=== PATIENT | male | born 1980 | race Caucasian/White ===

== ENCOUNTER 2019-12-30 07:07 | Inpatient (IN) | payer OTHER ==
[~2019-12-30] VITALS: Ht 175.3 cm; Wt 93.7 kg
[2019-12-30] MEDS ORDERED: SODIUM CHLORIDE 0.9% 1,000 ML IV ONE (07:38)
[2019-12-30 07:40] LABS: Urine Bacteria NONE SEEN /hpf (None Seen); Urine Blood Negative /uL (Negative); Urine Mucus FEW (None Seen); Urine Specific Gravity 1.028 (1.001-1.035); Urine WBC <1 /hpf (0 - 3)
[2019-12-30] MEDS ORDERED: METOCLOPRAMIDE HCL 5MG/ml INJ 2ml VIAL IV ONE (07:45)
[2019-12-30] MEDS ORDERED: KETOROLAC TROMETH 15 mg/ml 1ML VL IV ONE (07:45)
[2019-12-30 07:49] LABS: Basophils # (auto) 0 10 ^3/uL (0-0.2); Eosinophils # (auto) 0.1 10 ^3/uL (0-0.8); Eosinophils % (auto) 0.7 % (0.0-7.0); Hemoglobin 17.8 g/dL (13.5-17.5); Lymphocytes # (auto) 2.2 10 ^3/uL (0.4-5.4); Monocytes # (auto) 0.5 10 ^3/uL (0-1.3); Neutrophils # (auto) 6.8 10 ^3/uL (1.6-8.6); White Blood Cell 9.6 10^3/uL (4.4-10.8)
[2019-12-30 07:51] LABS: Basophils % (auto) 0.4 % (0.0-2.0); Hematocrit 51.9 % (41.0-53.0); Lymphocytes % (auto) 22.5 % (10.0-50.0); Mean Corpuscular Hemoglobin 29.2 pg (28.0-32.0); Mean Corpuscular Hgb Conc. 34.3 g/dL (32.0-36.0); Mean Corpuscular Volume 85.2 fL (80.0-100.0); Monocytes % (auto) 5.2 % (0.0-12.0); Neutrophils % (auto) 71.2 % (37.0-80.0); Nucleated Red Blood Cells % 0.4 %; Platelet Count (auto) 233 10^3/uL (140-450); Red Blood Cells 6.09 10^6/uL (4.5-5.90); Red Cell Distribution Width 13.7 % (11.8-14.3)
[2019-12-30 08:15] LABS: Calcium 9.7 mg/dL (8.5-10.1); Potassium 4.1 mmol/L (3.5-5.1)
[2019-12-30 08:19] LABS: Magnesium 2.3 mg/dL (1.6-2.6); Total Protein 8.7 g/dL (6.4-8.2)
[2019-12-30 08:59] LABS: BUN/Creatinine Ratio 14.6
[2019-12-30] MEDS: D5W/SOD CHL 0.45% 1,000 ML IV SCH ×2 (12:27→20:01)
[2019-12-30] MEDS: MORPHINE SULF INJ 2 MG/ML SYRINGE 1ML IV PRN (12:28)
[2019-12-30] MEDS: ONDANSETRON HCL 4 MG/2 ML VIAL IV PRN (12:28)
--- NOTE | 2019-12-30 13:35 | NUR ---
MS admit from ER MARIE QUEEN admitted to tele/MS after SBAR received from MEDICAL APPOINTMENT CLERKIONA Wei. Patient oriented to Erum Lozada RN primary RN, unit, room, bed, and unit policies regarding patient care and visiting hours. Patient weighed by bedscale and encouraged to call if they need something. All questions and concerns addressed, patient verbalized understanding. Note: Patient is alert and oriented x4. Ambulates with steady gait. No s/s of distress/SOB or pain reported at this time. Respirations are even and unlabored. Bed is low, locked with 2x side rails up. Call light is within reach. Instructed on POC and to call for assist PRN, will continue to monitor for changes Q1hr and PRN.
[2019-12-30] MEDS ORDERED: GOLYTELY 4L KIT PO ONE (14:15)
--- NOTE | 2019-12-30 14:22 | NUR ---
AMA to Smoke Patient stated he would like to go smoke. This nurse educated patient on risks of smoking and advised him that he cannot be monitored if he is off unit. Patient verbalized understanding and still wants to smoke. AMA signed and filed in chart.
[2019-12-30 15:32] LABS: INR 1.17 (0.9-1.15)
[2019-12-30 17:00] VITALS: BP 120/87
--- NOTE | 2019-12-30 19:25 | NUR ---
Opening Shift Note ASSUMED CARE OF PATIENT AFTER RECEIVING REPORT FROM DAY RNCARMINA. PATIENT AWAKE AND ALERT, RESTING IN BED COMFORTABLY, FAMILY AT BEDSIDE. NO S/S OF DISTRESS, SOB, OR PAIN. INSTRUCTED ON POC AND TO CALL FOR ASSISTANCE NEEDED. WILL CONTINUE TO MONITOR FOR CHANGES PRN AND Q1H.
--- NOTE | 2019-12-30 19:43 | NUR ---
PT OFF UNIT PATIENT REQUESTED TO WALK DOWN STAIRS, PATIENT EDUCATION GIVEN REGARDING BEING OFF UNIT AND NOT ABLE TO BE MONITORED. PATIENT VERBALIZED UNDERSTANDING. SIGNED AMA VERIFIED IN HARD CHART.
--- NOTE | 2019-12-30 21:06 | NUR ---
PT OFF UNIT, AMA TO SMOKE PATIENT REQUESTED TO GO OUT TO SMOKE, EDUCATION GIVEN TO PATIENT REGARDING HEALTH RISKS WITH SMOKING. PATIENT VERBALIZED UNDERSTANDING.
[2019-12-30 22:00] VITALS: BP 122/79
[2019-12-30] MEDS ORDERED: FAMOTIDINE (10MG/ML) 2ML VL IV SCH (22:00)
[2019-12-30] MEDS: PANTOPRAZOLE 40 MG TAB PO SCH (22:34)
[2019-12-31] MEDS: D5W/SOD CHL 0.45% 1,000 ML IV SCH ×4 (01:58→20:45)
[2019-12-31] MEDS: ONDANSETRON HCL 4 MG/2 ML VIAL IV PRN (03:51)
[2019-12-31 05:33] VITALS: BP 126/67
[2019-12-31 05:44] LABS: Basophils # (auto) 0 10 ^3/uL (0-0.2); Basophils % (auto) 0.6 % (0.0-2.0); Eosinophils # (auto) 0.1 10 ^3/uL (0-0.8); Eosinophils % (auto) 1.7 % (0.0-7.0); Hematocrit 46.4 % (41.0-53.0); Hemoglobin 15.8 g/dL (13.5-17.5); Lymphocytes % (auto) 25.9 % (10.0-50.0); Mean Corpuscular Hemoglobin 29.3 pg (28.0-32.0); Mean Corpuscular Hgb Conc. 34.1 g/dL (32.0-36.0); Mean Corpuscular Volume 85.7 fL (80.0-100.0); Monocytes # (auto) 0.5 10 ^3/uL (0-1.3); Monocytes % (auto) 6.6 % (0.0-12.0); Neutrophils # (auto) 5.1 10 ^3/uL (1.6-8.6); Neutrophils % (auto) 65.2 % (37.0-80.0); Nucleated Red Blood Cells % 0.1 %; Platelet Count (auto) 199 10^3/uL (140-450); Red Blood Cells 5.42 10^6/uL (4.5-5.90); Red Cell Distribution Width 13.8 % (11.8-14.3); White Blood Cell 7.9 10^3/uL (4.4-10.8)
[2019-12-31 06:00] LABS: Albumin 3.9 g/dL (3.4-5.0); Potassium 4.1 mmol/L (3.5-5.1)
[2019-12-31 06:07] LABS: BUN/Creatinine Ratio 11.5; Bilirubin, Total 2.6 mg/dL (0.2-1.0); Calcium 8.4 mg/dL (8.5-10.1); Total Protein 6.9 g/dL (6.4-8.2)
--- NOTE | 2019-12-31 07:00 | NUR ---
PATIENT AWAKE, ALERT AND ORIENTED, ORIENTATED TO THE UNIT AND THE PLAN OF CARE.PATIENT NPO FOR EGD AND COLONOSCOPY TODAY. FAMILY AT BED SIDE
[2019-12-31] MEDS ORDERED: SODIUM CHLORIDE LOCK 10 ML ONE ×2 (08:09→09:03)
[2019-12-31] MEDS ORDERED: MIDAZOLAM HCL 5 MG/ML-1ML VIAL ONE (08:09)
[2019-12-31] MEDS ORDERED: diphenhdrAMINE HCL 50 MG/1 ML VL ONE (08:09)
[2019-12-31] MEDS ORDERED: fentaNYL CITRATE 100 MCG/2 ML VL ONE ×2 (08:09→09:02)
[2019-12-31] MEDS ORDERED: LIDOCAINE VISCOUS 2% 15ML UD ONE (08:09)
[2019-12-31] MEDS ORDERED: LIDOCAINE 1% HCL (LOCAL ANESTH.) INJ 20ML MDV ONE (08:13)
--- NOTE | 2019-12-31 08:40 | NUR ---
PATIENT WAS TRANSFERRED TO OR FOR PROCEDURE
[2019-12-31 08:54] VITALS: BP_SYST 123; BP_SYST 138; BP_DIAS 78; BP_DIAS 80
[2019-12-31] MEDS ORDERED: HYDROmorphone HCL 2 MG/ML VL IV PRN (09:00)
[2019-12-31] MEDS ORDERED: fentaNYL CITRATE 100 MCG/2 ML VL IV PRN (09:00)
[2019-12-31] MEDS ORDERED: MORPHINE SULFATE 4 MG/ML SYR/VIAL IV PRN (09:00)
[2019-12-31] MEDS ORDERED: ONDANSETRON HCL 4 MG/2 ML VIAL IV PRN (09:00)
[2019-12-31] MEDS ORDERED: MIDAZOLAM HCL 1MG/1ML-2 ML VIAL ONE (09:02)
[2019-12-31] MEDS ORDERED: ONDANSETRON HCL 4 MG/2 ML VIAL ONE (09:03)
[2019-12-31] MEDS ORDERED: PROPOFOL 10 MG/ML 20 ML IV ONE (09:03)
[2019-12-31] MEDS: PANTOPRAZOLE 40 MG TAB PO SCH ×2 (10:00→22:00)
--- NOTE | 2019-12-31 10:40 | NUR ---
PATIENT CAME BACK TO THE UNIT, ALERT AND ORIENTED, STABLE. DR DEVRIES SAW THE PATIENT AND ADVISE HIM ON SMOKE CESSATION, OTHERWISE HIS ULCER WILL NOT IMPROVE.
[2019-12-31] MEDS ORDERED: HYDROcodone-ACET 5/325MG TAB PO PRN (10:45)
--- NOTE | 2019-12-31 11:48 | NUR ---
PATIENT ASKED TO GO TO SMOKE; INFORMATION REGARDING SMOKING CESSATION DISCUSSED WITH PATIENT AND . PATIENT REPLY "THIS WILL MY LAST ONE, I GUESS I HAVE TO QUIT"
--- NOTE | 2019-12-31 12:00 | NUR ---
PATIENT WALKIN AROUND WITH HIS , NO SIGNS OF DISTRESS.
[2019-12-31 13:00] VITALS: BP_SYST 126; BP_SYST 143; BP_DIAS 62; BP_DIAS 80
--- NOTE | 2019-12-31 14:00 | NUR ---
PATIENT HAD REGULAR DIET FOR LUNCH, TOLERATED WELL. NO NAUSEA OR VOMITING.
[2019-12-31 17:00] VITALS: BP_SYST 125; BP_SYST 148; BP_DIAS 79; BP_DIAS 81
--- NOTE | 2019-12-31 17:30 | NUR ---
patient continues to got to smoke, asked for pain medication one hi is back.
[2019-12-31] MEDS: MORPHINE SULF INJ 2 MG/ML SYRINGE 1ML IV PRN (17:42)
[2019-12-31 22:00] VITALS: BP 117/69
[2020-01-01 05:00] VITALS: BP 106/50
[2020-01-01] MEDS: MORPHINE SULF INJ 2 MG/ML SYRINGE 1ML IV PRN (05:45)
[2020-01-01] MEDS: D5W/SOD CHL 0.45% 1,000 ML IV SCH (06:45)
--- NOTE | 2020-01-01 07:30 | NUR ---
Opening Shift Note Assumed care of patient, who is alert and oriented x4. No S/S of distress/SOB or pain. Bed is low, locked with 2x side rails up. Call light is within reach. Instructed on POC and to call for assist PRN, will continue to monitor for changes Q1hr and PRN.
[2020-01-01 08:00] VITALS: BP 120/78
[2020-01-01 09:00] VITALS: BP 120/78
[2020-01-01] MEDS: PANTOPRAZOLE 40 MG TAB PO SCH (10:36)
[2020-01-01 10:45] VITALS: BP 120/78
--- NOTE | 2020-01-01 11:30 | NUR ---
Discharge instructions given as ordered. Encourage to follow up with PMD as instructed. Unable to schedule follow up appointment with PCP due to PCP being OOA. Provided patient with PCP information. Advised patient to follow up with PCP in 2 weeks as ordered by MD. All questions and concerns addressed. Patient verbalized understanding. IV removed with catheter intact, pressure dressing applied.Patient ambulated off unit with all personal belongings being accompanied by , Emilie. No distress noted at time of departure.
== END 2020-01-01 11:30 | disposition home or self-care (01) | DRG 241 ==
LOC: ER 07:07 → OVERFLOW 07:08 → CENTRAL 13:26
PROVIDERS: ADMIT Nurse Practitioner Acute Care; ATTEND Internal Medicine
PROC: 0DBN8ZZ Excision of Sigmoid Colon, Via Natural or Artificial Opening Endoscopic (ICD-10-PCS; 2019-12-31)
PROC: 0DB68ZX Excision of Stomach, Via Natural or Artificial Opening Endoscopic, Diagnostic (ICD-10-PCS; principal; 2019-12-31 09:01)
PROC: 0DBK8ZZ Excision of Ascending Colon, Via Natural or Artificial Opening Endoscopic (ICD-10-PCS; 2019-12-31 09:01)
DX: K29.71 Gastritis, unspecified, with bleeding (principal); E66.9 Obesity, unspecified; K25.4 Chronic or unspecified gastric ulcer with hemorrhage; K63.5 Polyp of colon; F17.210 Nicotine dependence, cigarettes, uncomplicated; F10.10 Alcohol abuse, uncomplicated; F12.90 Cannabis use, unspecified, uncomplicated; Z88.2 Allergy status to sulfonamides; Z88.8 Allergy status to other drugs, medicaments and biological substances; Z68.30 Body mass index [BMI] 30.0-30.9, adult; K29.81 Duodenitis with bleeding
CPT/HCPCS: 36415; 43239; 45380; 71046; 74176; 80053; 81001; 82378; 83690; 83735; 85025; 85610; 96361; 96374; 96375; G0378; J2001; J2250; J2405; J2704

== ENCOUNTER 2021-07-18 10:34 | Emergency (ER) | payer OTHER ==
[~2021-07-18] VITALS: Ht 172.7 cm; Wt 98.0 kg
[2021-07-18 13:30] VITALS: BP 135/99
[2021-07-18] MEDS ORDERED: ACETAMINOPHEN 325 MG TAB PO ONE (15:00)
== END 2021-07-18 15:04 | disposition home or self-care (01) ==
LOC: ER 10:34
DX: S16.1XXA Strain of muscle, fascia and tendon at neck level, initial encounter (principal); S39.012A Strain of muscle, fascia and tendon of lower back, initial encounter; S00.03XA Contusion of scalp, initial encounter; M25.562 Pain in left knee; F17.210 Nicotine dependence, cigarettes, uncomplicated; Z88.2 Allergy status to sulfonamides; V29.9XXA Motorcycle rider (driver) (passenger) injured in unspecified traffic accident, initial encounter; Y93.89 Activity, other specified; Y92.410 Unspecified street and highway as the place of occurrence of the external cause; Y99.8 Other external cause status
CPT/HCPCS: 70450; 72100; 72125; 73562

== ENCOUNTER 2024-04-09 02:37 | Inpatient (IN) | payer MEDICAID, OTHER ==
[~2024-04-09] VITALS: Ht 172.7 cm; Wt 103.0 kg
[2024-04-09 04:27] LABS: Urine Amorphous Crystal FEW /hpf (None Seen); Urine Bacteria FEW /hpf (None Seen); Urine Blood Negative /uL (Negative); Urine Clarity Ex.Turbid (Clear); Urine Color Colorless (Yellow); Urine Mucus FEW (None Seen); Urine Protein, UAD TRACE (Negative); Urine Specific Gravity 1.017 (1.001-1.035); Urine Urobilinogen Normal (Negative); Urine WBC 1 /hpf (0 - 3); Urine pH 8.5 (5.0-9.0)
[2024-04-09] MEDS: SODIUM CHLORIDE 0.9% 1,000 ML IVB ONE (06:45)
[2024-04-09 06:48] LABS: Basophils # (auto) 0 10 ^3/uL (0-0.2); Basophils % (auto) 0.4 % (0.0-2.0); Eosinophils # (auto) 0.1 10 ^3/uL (0-0.8); Hematocrit 47.2 % (41.0-53.0); Hemoglobin 16.1 g/dL (13.5-17.5); Lymphocytes # (auto) 2.2 10 ^3/uL (0.4-5.4); Lymphocytes % (auto) 23.9 % (10.0-50.0); Mean Corpuscular Hemoglobin 29.2 pg (28.0-32.0); Mean Corpuscular Volume 85.7 fL (80.0-100.0); Monocytes # (auto) 0.8 10 ^3/uL (0-1.3); Monocytes % (auto) 8.6 % (0.0-12.0); Neutrophils % (auto) 66.1 % (37.0-80.0); Red Blood Cells 5.51 10^6/uL (4.5-5.90); Red Cell Distribution Width 14.2 % (11.8-14.3); White Blood Cell 9.1 10^3/uL (4.4-10.8)
[2024-04-09 07:01] LABS: Alanine Aminotransferase 16 U/L (7-40); Albumin 4.7 g/dL (3.2-4.8); Alkaline Phosphatase 64 U/L (46-116); Anion Gap 5 (5-15); Aspartate Aminotransferase 11 U/L (13-40); BUN/Creatinine Ratio 11.8 (10.0-20.0); Bilirubin, Total 0.7 mg/dL (0.2-1.0); Blood Urea Nitrogen 11 mg/dL (9-23); Calcium 9.7 mg/dL (8.5-10.1); Carbon Dioxide 26 mmol/L (20-30); Chloride 108 mmol/L (98-107); Glucose 103 mg/dL (74-106); Sodium 139 mmol/L (136-145)
[2024-04-09] MEDS: ONDANSETRON HCL 4 MG/2 ML VIAL IV ONE (07:11)
[2024-04-09] MEDS: PANTOPRAZOLE 40 MG/10 ML VIAL INJ IV ONE (07:11)
[2024-04-09] MEDS: MORPHINE SULFATE 4 MG/ML SYR/VIAL IV ONE (07:18)
[2024-04-09 07:30] VITALS: PULSE 59; RESP 12; O2SAT 96
[2024-04-09] MEDS: HYDROmorphone HCL 2 MG/ML VL/or syr IV ONE ×2 (08:09→17:15)
[2024-04-09 09:49] LABS: INR 1.06 (0.9-1.15); Partial Thromboplastin Time 29.5 SEC (24.5-34.5); Prothrombin Time 11.2 sec (9.3-11.8)
[2024-04-09] MEDS ORDERED: ONDANSETRON HCL 4 MG/2 ML VIAL IV PRN ×2 (10:30→17:15)
[2024-04-09] MEDS: PIPERACILLIN-TAZOB 3.375GM 100 ML IV ONE (10:35)
[2024-04-09] MEDS: cefTRIAXone 1GM/50ML D5W 50 ML IV ONE (12:50)
[2024-04-09] MEDS: SODIUM CHLORIDE 0.9% 1,000 ML IV SCH (13:09)
[2024-04-09] MEDS ORDERED: fentaNYL CITRATE 100 MCG/2 ML VL IV PRN (14:15)
[2024-04-09] MEDS ORDERED: HYDROmorphone HCL 2 MG/ML VL/or syr IV PRN (14:15)
[2024-04-09] MEDS ORDERED: MORPHINE SULFATE INJ 2 MG/ml SYRG IV PRN (14:15)
[2024-04-09] MEDS: KETOROLAC TROMETH 30 MG/ML 1ML VIAL IV ONE (14:15)
[2024-04-09] MEDS: METOCLOPRAMIDE HCL 5MG/ml INJ 2ml VIAL IV ONE (14:15)
[2024-04-09] MEDS: DOXAPRAM HCL 20 MG/ML 20ML VIAL INJ IV ONE (15:03)
[2024-04-09] MEDS: ROCURONIUM 10MG/ML 10ML VIAL IV ONE (15:03)
[2024-04-09] MEDS: SUCCINYLCHOLINE CHLORIDE 20 MG/ML 10ML VIAL IV ONE (15:03)
[2024-04-09] MEDS ORDERED: ONDANSETRON HCL 4 MG/2 ML VIAL ONE (15:14)
[2024-04-09] MEDS ORDERED: PROPOFOL 10 MG/ML 20 ML IV ONE (15:14)
[2024-04-09] MEDS ORDERED: SODIUM CHLORIDE LOCK 10 ML ONE (15:14)
[2024-04-09] MEDS ORDERED: MEPERIDINE HCL (50 MG/ML) 1 ML VIAL ONE (15:14)
[2024-04-09] MEDS ORDERED: KETAMINE 50mg/ML 1ml syringe ONE (15:14)
[2024-04-09] MEDS ORDERED: MIDAZOLAM HCL 2MG/2ML 2ml VIAL (1mg/ml) ONE (15:14)
[2024-04-09] MEDS ORDERED: DexAMETHasone SOD PHOS 10MG/1ML VIAL INJ ONE (15:14)
[2024-04-09] MEDS ORDERED: fentaNYL CITRATE 100 MCG/2 ML VL ONE (15:14)
[2024-04-09] MEDS: BUPIVACAINE HCL 50 ML ONE (15:51)
[2024-04-09] MEDS: ceFAZolin 2 GM/D5W50ml 50 ML IV ONE (16:18)
[2024-04-09] MEDS: LIDOCAINE W/ EPINEPHRINE 1% 20ML VIAL ONE (16:18)
[2024-04-09 17:15] VITALS: PULSE 94; RESP 15; O2SAT 93
[2024-04-09] MEDS: D5W/SOD CHL 0.45%/KCL 20MEQ 1,000 ML IV SCH (17:15)
[2024-04-09] MEDS: HYDROmorphone HCL 2 MG/ML VL/or syr IV PRN (17:53)
[2024-04-09] MEDS: hydrALAZINE HCL 20 MG/ML VL ONE (18:06)
[2024-04-09] MEDS: hydrALAZINE HCL 20 MG/ML VL IV ONE (18:15)
[2024-04-09 18:40] VITALS: BP 150/94; PULSE 64; RESP 20; TEMP 97.4; O2SAT 94
[2024-04-09 18:56] VITALS: PULSE 94; RESP 15; O2SAT 93
[2024-04-09 21:00] VITALS: BP 140/85; PULSE 63; RESP 18; TEMP 98; O2SAT 91
[2024-04-09] MEDS: MORPHINE SULFATE INJ 2 MG/ml SYRG IV PRN (21:37)
[2024-04-09] MEDS: NICOTINE 21MG/24 HR TOPICAL PATCH TD SCH (22:41)
[2024-04-09] MEDS: ceFAZolin 2 GM/D5W50ml 50 ML IV SCH (22:41)
[2024-04-09] MEDS: metroNIDAZOLE 500MG/100ML 100 ML IV SCH (22:50)
[2024-04-09 23:53] VITALS: PULSE 76; RESP 19; O2SAT 95
[2024-04-10] VITALS (7 sets, daily range): BP systolic 129–148; BP diastolic 82–97; PULSE 59–98; RESP 16–19; TEMP 97.9–98.6; O2SAT 92–98
[2024-04-10] MEDS: HYDROmorphone HCL 2 MG/ML VL/or syr ONE (01:49)
[2024-04-10 07:24] LABS: Basophils # (auto) 0 10 ^3/uL (0-0.2); Basophils % (auto) 0.1 % (0.0-2.0); Eosinophils # (auto) 0 10 ^3/uL (0-0.8); Hematocrit 48.4 % (41.0-53.0); Hemoglobin 16.7 g/dL (13.5-17.5); Lymphocytes # (auto) 1.4 10 ^3/uL (0.4-5.4); Lymphocytes % (auto) 14.3 % (10.0-50.0); Mean Corpuscular Hemoglobin 29.5 pg (28.0-32.0); Mean Corpuscular Hgb Conc. 34.5 g/dL (32.0-36.0); Mean Corpuscular Volume 85.6 fL (80.0-100.0); Monocytes # (auto) 0.8 10 ^3/uL (0-1.3); Monocytes % (auto) 8.7 % (0.0-12.0); Neutrophils # (auto) 7.4 10 ^3/uL (1.6-8.6); Neutrophils % (auto) 76.9 % (37.0-80.0); Nucleated Red Blood Cells % 0.4 %; Red Blood Cells 5.65 10^6/uL (4.5-5.90); White Blood Cell 9.6 10^3/uL (4.4-10.8)
[2024-04-10 07:36] LABS: Alanine Aminotransferase 166 U/L (7-40); Alkaline Phosphatase 114 U/L (46-116); Anion Gap 4 (5-15); BUN/Creatinine Ratio 8.2 (10.0-20.0); Blood Urea Nitrogen 8 mg/dL (9-23); Calcium 9.4 mg/dL (8.5-10.1); Carbon Dioxide 25 mmol/L (20-30); Chloride 108 mmol/L (98-107); Glucose 112 mg/dL (74-106); Potassium 4.3 mmol/L (3.5-5.1); Sodium 137 mmol/L (136-145)
[2024-04-10 07:38] LABS: Albumin 4.7 g/dL (3.2-4.8); Aspartate Aminotransferase 74 U/L (13-40)
[2024-04-10 07:39] LABS: Bilirubin, Total 1.2 mg/dL (0.2-1.0); Total Protein 7.1 g/dL (5.7-8.2)
[2024-04-10] MEDS: PANTOPRAZOLE 40 MG/10 ML VIAL INJ IV SCH (08:46)
[2024-04-10] MEDS ORDERED: cefTRIAXone 1GM/50ML D5W 50 ML IV SCH (09:00)
[2024-04-10] MEDS: HYDROcodone-ACET 10/325MG TAB PO PRN (13:15)
[2024-04-11 01:00] VITALS: BP 128/75; PULSE 51; RESP 17; TEMP 97.6; O2SAT 98
[2024-04-11 05:00] VITALS: BP 136/74; PULSE 56; RESP 17; TEMP 98.1; O2SAT 95
[2024-04-11 06:03] LABS: Basophils # (auto) 0 10 ^3/uL (0-0.2); Basophils % (auto) 0.4 % (0.0-2.0); Eosinophils # (auto) 0.2 10 ^3/uL (0-0.8); Eosinophils % (auto) 1.2 % (0.0-7.0); Hematocrit 47.9 % (41.0-53.0); Hemoglobin 16.3 g/dL (13.5-17.5); Lymphocytes # (auto) 3.1 10 ^3/uL (0.4-5.4); Lymphocytes % (auto) 25.4 % (10.0-50.0); Mean Corpuscular Volume 85.2 fL (80.0-100.0); Monocytes # (auto) 1.3 10 ^3/uL (0-1.3); Monocytes % (auto) 10.6 % (0.0-12.0); Neutrophils # (auto) 7.7 10 ^3/uL (1.6-8.6); Neutrophils % (auto) 62.4 % (37.0-80.0); Nucleated Red Blood Cells % 0.3 %; Red Blood Cells 5.62 10^6/uL (4.5-5.90); Red Cell Distribution Width 13.8 % (11.8-14.3); White Blood Cell 12.3 10^3/uL (4.4-10.8)
[2024-04-11 06:30] LABS: Alanine Aminotransferase 99 U/L (7-40); Albumin 4.5 g/dL (3.2-4.8); Alkaline Phosphatase 94 U/L (46-116); Anion Gap 4 (5-15); Aspartate Aminotransferase 28 U/L (13-40); BUN/Creatinine Ratio 7.7 (10.0-20.0); Bilirubin, Total 1.1 mg/dL (0.2-1.0); Blood Urea Nitrogen 8 mg/dL (9-23); Calcium 9.4 mg/dL (8.5-10.1); Carbon Dioxide 26 mmol/L (20-30); Chloride 108 mmol/L (98-107); Glucose 85 mg/dL (74-106); Sodium 138 mmol/L (136-145)
[2024-04-11 09:00] VITALS: BP 122/89; PULSE 71; RESP 20; TEMP 98; O2SAT 100
[2024-04-11] MEDS ORDERED: METR-344 PO (10:22)
[2024-04-11] MEDS ORDERED: AUG875T PO (10:22)
[2024-04-11 13:00] VITALS: BP 124/83; PULSE 66; RESP 20; TEMP 98; O2SAT 95
== END 2024-04-11 14:00 | disposition home or self-care (01) | DRG 263 ==
LOC: ER 02:37 → OVERFLOW 09:03 → CENTRAL 18:41
PROVIDERS: ADMIT Internal Medicine; ATTEND Internal Medicine
PROC: 0FT44ZZ Resection of Gallbladder, Percutaneous Endoscopic Approach (ICD-10-PCS; principal; 2024-04-09 16:00)
DX: K80.62 Calculus of gallbladder and bile duct with acute cholecystitis without obstruction (principal); E66.9 Obesity, unspecified; F17.210 Nicotine dependence, cigarettes, uncomplicated; I10 Essential (primary) hypertension; Z88.3 Allergy status to other anti-infective agents; Z87.19 Personal history of other diseases of the digestive system; Z68.34 Body mass index [BMI] 34.0-34.9, adult; Z79.899 Other long term (current) drug therapy
CPT/HCPCS: 36415; 74176; 76705; 80053; 81001; 83690; 85025; 85610; 85730; 86850; 86900; 86901; C9113; G0378; J0330; J1100; J2250; J2405; J2543; J2704; J3490

== ENCOUNTER 2025-08-26 18:09 | Inpatient (IN) | payer MEDICAID ==
[~2025-08-26] VITALS: Ht 170.2 cm; Wt 95.3 kg
[~2025-08-26 18:09] MED LIST: AUG875T PO; METR-344 PO
[2025-08-26 19:53] LABS: Hematocrit 48.9 % (41.0-53.0); Hemoglobin 16.5 g/dL (13.5-17.5); Mean Corpuscular Hemoglobin 28.6 pg (28.0-32.0); Mean Corpuscular Volume 84.7 fL (80.0-100.0)
[2025-08-26 20:02] LABS: Chloride 101 mmol/L (98-107); Potassium 4.9 mmol/L (3.5-5.1); Sodium 138 mmol/L (136-145)
[2025-08-26 20:03] LABS: Anion Gap 9 (5-15); Calcium 9.8 mg/dL (8.7-10.4); Carbon Dioxide 28 mmol/L (20-31)
[2025-08-26 20:08] LABS: BUN/Creatinine Ratio 12.5 (10.0-20.0); Blood Urea Nitrogen 14 mg/dL (9-23)
[2025-08-26] MEDS: ONDANSETRON HCL 4 MG/2 ML VIAL IV ONE (20:20)
[2025-08-26] MEDS: KETOROLAC TROMETH 30 MG/ML 1ML VIAL IV ONE (20:21)
[2025-08-26] MEDS: SODIUM CHLORIDE 0.9% 1,000 ML IV ONE (20:21)
--- NOTE | 2025-08-26 20:30 | DVH ---
CLINICAL HISTORY: lEFT FLANK PAIN TECHNIQUE: CT of the abdomen and pelvis was performed without IV contrast. This exam was performed ac cording to our departmental dose optimization program. Up-to-date CT equipment and radiation dose red uction techniques are utilized as appropriate. CTDI 13.6 DLP 782 COMPARISON: US ABDOMEN LIMITED on DOS: 04/09/24, CT CT AB PEL WO CON-NO ORAL OR IV on DOS: 04/09/24, CT ABD PELVIS WO CONTRAST on DOS: 12/30/19 FINDINGS: Abdomen/Pelvis: The spleen, pancreas, adrenal glands, kidneys, bladder, and prostate gland are grossly unremarkable. Hypodense liver lesions are incompletely characterized due to lack of IV contrast. There is diffuse hepatic steatosis. The gallbladder is absent. The abdominal aorta is normal in course and caliber. There are no significant atherosclerotic calcifi cations. There is no free intraperitoneal air or fluid. There is no enlarged abdominal pelvic lymph node. There is no bowel wall thickening or dilatation. The appendix is normal. Other: The imaged lower thorax demonstrates minimal right lower lobe atelectatic changes. No acute osseous abnormality is evident. Impression: No acute noncontrast CT abnormality in the abdomen or pelvis. Diffuse hepatic steatosis. Cholecystectomy.
[2025-08-26 21:01] LABS: Glucose 128 mg/dL (74-106)
[2025-08-26 21:03] LABS: Urine Budding Yeast OCCASIONAL /hpf (None Seen); Urine Protein, UAD 2+ (Negative)
[2025-08-26 21:29] LABS: Total Cells Counted 100.0 (100)
[2025-08-26 21:30] LABS: Anisocytosis Slight
[2025-08-27] VITALS (7 sets, daily range): BP systolic 140–159; BP diastolic 86–99; PULSE 67–89; RESP 16–20; TEMP 97.7–100.9; O2SAT 96–97
[2025-08-27] MEDS ORDERED: ONDANSETRON HCL 4 MG/2 ML VIAL IV PRN
[2025-08-27] MEDS ORDERED: HYDROcodone-ACET 5/325MG TAB PO PRN
[2025-08-27] MEDS ORDERED: ACETAMINOPHEN 325 MG TAB PO PRN
[2025-08-27] MEDS ORDERED: THROAT LOZENGES(CEPASTAT) MT PRN (00:15)
[2025-08-27] MEDS: THROAT LOZENGES(CEPASTAT) MT ONE (00:15)
[2025-08-27] MEDS: SODIUM CHLORIDE 0.9% 1,000 ML IV ONE ×2 (00:15)
[2025-08-27] MEDS: LIDOCAINE 5% TOPICAL PATCH TOP ONE (00:45)
--- NOTE | 2025-08-27 01:08 | DVH ---
CHEST RADIOGRAPH Indication: sob Technique: 1 view Comparison: None FINDINGS: Lines and Tubes: None. Lungs/Pleura: No focal consolidation, pleural effusion or pneumothorax. Cardiomediastinum: Unremarkable. Other: No acute osseous abnormality. IMPRESSION: 1. No acute cardiopulmonary abnormality.
[2025-08-27 01:44] LABS: Alanine Aminotransferase 24.0 U/L (7-40); Alkaline Phosphatase 115.0 U/L (46-116); Bilirubin, Direct 0.2 mg/dL (<0.3); Bilirubin, Total 0.9 mg/dL (0.2-1.0); Magnesium 2.2 mg/dL (1.6-2.6); Total Protein 8.0 g/dL (5.7-8.2)
[2025-08-27 01:49] LABS: Albumin 4.9 g/dL (3.2-4.8)
[2025-08-27 02:57] LABS: COVID19 ANTIGEN SOFIA FIA NEGATIVE (NEGATIVE)
[2025-08-27] MEDS: ENOXAPARIN SOD 40 MG/0.4 ML SYRINGE SC SCH (03:24)
[2025-08-27 03:33] LABS: Rapid Strep A Screen-Throat Positive
[2025-08-27 04:18] LABS: Hematocrit 42.9 % (41.0-53.0); Hemoglobin 14.5 g/dL (13.5-17.5); Mean Corpuscular Hemoglobin 28.8 pg (28.0-32.0); Mean Corpuscular Volume 85.0 fL (80.0-100.0); Nucleated Red Blood Cells % 0.0 %
[2025-08-27 04:43] LABS: Alanine Aminotransferase 21 U/L (7-40); Albumin 4.5 g/dL (3.2-4.8); Alkaline Phosphatase 88 U/L (46-116); Anion Gap 9 (5-15); BUN/Creatinine Ratio 20.7 (10.0-20.0); Bilirubin, Total 0.8 mg/dL (0.2-1.0); Blood Urea Nitrogen 18 mg/dL (9-23); Calcium 9.1 mg/dL (8.7-10.4); Carbon Dioxide 25 mmol/L (20-31); Chloride 103 mmol/L (98-107); Glucose 133 mg/dL (74-106); Potassium 4.0 mmol/L (3.5-5.1); Sodium 137 mmol/L (136-145); Total Protein 7.2 g/dL (5.7-8.2)
[2025-08-27] MEDS: HYDROmorphone HCL 2 MG/ML VL/or syr IV ONE (05:54)
[2025-08-27] MEDS ORDERED: ACET-1304 PO (06:13)
[2025-08-27] MEDS ORDERED: PHENPAK3 PO (06:13)
[2025-08-27] MEDS ORDERED: LACTATED RINGER'S 1,000 ML IV SCH (08:15)
[2025-08-27] MEDS ORDERED: VANCOMYCIN PER PHARMACY 0 MG IV SCH (10:00)
[2025-08-27] MEDS: HYDROmorphone HCL 2 MG/ML VL/or syr IV PRN (10:46)
[2025-08-27] MEDS ORDERED: IOHEXOL 300 MG/ML 100ML BOTTLE IJ ONE (10:59)
--- NOTE | 2025-08-27 11:24 | ED.PDOC ---
History of Present Illness HPI Comments 45-year-old male who came to ER for abdominal pain. Patient states for the past 3 days, he has been experiencing throat pain, associated with dizziness, myalgia, muscle and joint pains, and left-sided abdominal pain. Earlier today patient is started having episode nausea and vomiting, states he could not keep anything in. Was seen at urgent care was was prescribed by amoxicillin for the throat pain, and was advised to go to the ER if nausea and vomiting persisted REVIEW OF SYSTEMS: General: No fever, no chills, or fatigue HEENT: (+) sore throat, no earache, no congestion, no neck pain. Cardiac: No chest pain. No palpitations. Lungs: No shortness of breath, no cough. GI: (+) nausea, (+) vomiting, no diarrhea, no constipation, (+) abdominal pain : No dysuria, frequency, or urgency. No hematuria. Musculoskeletal: No joint pain , no joint swelling, no extremity edema. Skin: No rash, no itching. Neuro: No headache, no dizziness, no weakness EXAM: General: Awake, alert and oriented. No acute distress. Skin: Skin in warm, dry and intact. Appropriate color for ethnicity. HEENT: The head is normocephalic and atraumatic. Conjunctivae are clear without exudates or hemorrhage. Sclera is non-icteric. EOM are intact. No signs of nystagmus. Eyelids are normal in appearance without swelling or lesions. Oral mucosa is pink and moist Neck: The neck is supple with normal range of motion. No JVD. Cardiac: Heart rate and rhythm are normal. No murmurs, gallops, or rubs are auscultated. Respiratory: No signs of respiratory distress. Lung sounds are clear in all lobes bilaterally without rales, rhonchi, or wheezes. Abdominal: + Left flank tenderness Extremities: Upper and lower extremities are atraumatic in appearance without deformity or edema. Neurological: The patient is awake, alert and oriented to person, place, and time with normal speech. Speech is clear. There is no facial asymmetry. Psychiatric: Appropriate mood and affect. Good judgement and insight Chief Complaint: Abdominal Pain Time Seen by MD: 19:19 Primary Care Provider: NONE Reviewed Notes: Nurses Notes Allergies: Coded Allergies: Sulfamethoxazole w/Trimethoprim (Verified Allergy, Unknown, 12/30/19) Home Meds Active Scripts Metronidazole (Flagyl) 500 Mg Tab, 500 MG PO TID for 5 Days, #15 TAB Prov:POLO SEPULVEDA MD 04/11/24 Amoxicillin & Pot Clavulanate (AUGMENTIN TABLET) 875 Mg Tb, 875 MG PO BID for 5 Days, #10 TAB Prov:POLO SEPULVEDA MD 04/11/24 Information Source: Patient Mode of Arrival: Ambulatory Past Medical History PAST MEDICAL HISTORY: HTN Surgical History: Cholecystectomy Surgical History (Other): Resection of colon Family History Family History: Reviewed,noncontributory to illness, Family hx of Cancer Social History Smoker: Cigarettes, Less Than 1 Pack/Day Alcohol: Occasionally Drugs: Marijuana Lives In: Home Was a procedure done? Was a procedure done?: No Differential Dx Considerations may include: Differential diagnoses considered include but are not limited to pyelonephritis, UTI, nephrolithiasis, PUD, musculoskeletal pain, AAA, other X-Ray, Labs, Meds, VS Vital Signs Date Time Temp Pulse Resp B/P (MAP) Pulse Ox O2 Delivery O2 Flow Rate FiO2 08/26/25 18:10 98.7 126 16 152/104 97 98.7 Lab Test 08/26/25 20:30 08/26/25 19:43 Range/Units Urine Color Yellow Yellow Urine Clarity Clear Clear Urine pH 6.5 5.0-9.0 Urine Specific [place] 1.046 H 1.001-1.035 Urine Protein 2+ H Negative Urine Ketones 1+ H Negative Urine Blood Trace H Negative /uL Urine Nitrite Negative Negative Urine Bilirubin Negative Negative Urine Urobilinogen 6 Negative mg/dL Urine Leukocyte Esterase Negative Negative /uL Urine RBC 31 0 - 3 /hpf Urine Microscopic WBC 1 0-3 /HPF Urine Squamous Epithelial Cells None seen <5 /hpf Urine Bacteria None seen None Seen /hpf Urine Mucus Few None Seen Urine Yeast (Budding) Occasional None Seen /hpf Urine Glucose Normal Normal mg/dL White Blood Count 30.8 *H 4.4-10.8 10^3/uL Red Blood Count 5.77 4.5-5.90 10^6/uL Hemoglobin 16.5 13.5-17.5 g/dL Hematocrit 48.9 41.0-53.0 % Mean Corpuscular Volume 84.7 80.0-100.0 fL Mean Corpuscular Hemoglobin 28.6 28.0-32.0 pg Mean Corpuscular Hemoglobin Concent 33.7 32.0-36.0 g/dL Red Cell Distribution Width 14.2 11.8-14.3 % Platelet Count 200 140-450 10^3/uL Mean Platelet Volume 8.8 6.9-10.8 fL Neutrophils (%) (Auto) 37.0-80.0 % Lymphocytes (%) (Auto) 10.0-50.0 % Monocytes (%) (Auto) 0.0-12.0 % Basophils (%) (Auto) 0.0-2.0 % Neutrophils # (Auto) 1.6-8.6 10 ^3/uL Lymphocytes # (Auto) 0.4-5.4 10 ^3/uL Monocytes # (Auto) 0-1.3 10 ^3/uL Differential Total Cells Counted 100.0 100 Neutrophils % (Manual) 83 H 37.0-80.0 Band Neutrophils % (Manual) 10 Lymphocytes % (Manual) 3 L 10.0-50.0 Monocytes % (Manual) 4 0-12 Eosinophils % (Manual) 0 0-7 Basophils % (Manual) 0 0.0-2.0 Metamyelocytes % (manual) 0 Myelocytes % (Manual) 0 Promyelocytes % (Manual) 0 Blast Cells % (Manual) 0 Reactive Lymphocytes 0 Platelet Estimate Adequate Anisocytosis (manual) Slight Sodium Level 138 136-145 mmol/L Potassium Level 4.9 3.5-5.1 mmol/L Chloride Level 101 98-107 mmol/L Carbon Dioxide Level 28 20-31 mmol/L Anion Gap 9 5-15 Blood Urea Nitrogen 14 9-23 mg/dL Creatinine 1.12 0.700-1.30 mg/dL Glomerular Filtration Rate Calc 83 >90 mL/min BUN/Creatinine Ratio 12.5 10.0-20.0 Serum Glucose 128 H 74-106 mg/dL Calcium Level 9.8 8.7-10.4 mg/dL Current Medications Medications (Trade) Dose Ordered Sig/Dena Route Start Time Stop Time Status Last Admin Sodium Chloride 1,000 ml @ 1,000 mls/hr Q1H ONCE IV 08/26/25 19:45 08/26/25 20:44 DC 08/26/25 20:21 Ondansetron HCl (Zofran) 4 mg ONCE ONCE IV 08/26/25 19:45 08/26/25 19:46 DC 08/26/25 20:20 Ketorolac Tromethamine (Toradol Injection) 15 mg ONCE ONCE IV 08/26/25 19:45 08/26/25 19:46 DC 08/26/25 20:21 CLINICAL HISTORY: lEFT FLANK PAIN TECHNIQUE: CT of the abdomen and pelvis was performed without IV contrast. This exam was performed according to our departmental dose optimization program. Up-to-date CT equipment and radiation dose reduction techniques are utilized as appropriate. CTDI 13.6 DLP 782 COMPARISON: US ABDOMEN LIMITED on DOS: 04/09/24, CT CT AB PEL WO CON-NO ORAL OR IV on DOS: 04/09/24, CT ABD PELVIS WO CONTRAST on DOS: 12/30/19 FINDINGS: Abdomen/Pelvis: The spleen, pancreas, adrenal glands, kidneys, bladder, and prostate gland are grossly unremarkable. Hypodense liver lesions are incompletely characterized due to lack of IV contrast. There is diffuse hepatic steatosis. The gallbladder is absent. The abdominal aorta is normal in course and caliber. There are no significant atherosclerotic calcifications. There is no free intraperitoneal air or fluid. There is no enlarged abdominal pelvic lymph node. There is no bowel wall thickening or dilatation. The appendix is normal. Other: The imaged lower thorax demonstrates minimal right lower lobe atelectatic changes. No acute osseous abnormality is evident. Impression: No acute noncontrast CT abnormality in the abdomen or pelvis. Diffuse hepatic steatosis. Cholecystectomy. Time of 1ST Reevaluation: 19:15 Reevaluation 1ST: Unchanged Patient Education/Counseling: Need For Follow Up Family Education/Counseling: No Family Present SEPSIS Sepsis Screen Date sepsis recognized/suspect: Aug 26, 2025 Time Sepsis recognized/suspect: 1811 Recent Procedure: No On Antibiotic Therapy: No Respiratory Rate >20: No Heart Rate >90: Yes Temp<36 C (96.8 F) or >38.3 C: No SBP <90 or MAP <65 mmHG: No New Acute Mental Status Change: No Is the patient on CPAP, BIPAP,: No Physician Orders Ct Ab Pel Wo Con-No Oral Or Iv (08/26/25 19:35) Vital Signs Date Time Temp Pulse Resp B/P (MAP) Pulse Ox O2 Delivery O2 Flow Rate FiO2 10/30/25 18:10 98.7 126 16 152/104 97 98.7 Laboratory Tests Test 08/26/25 19:43 White Blood Count 30.8 10^3/uL (4.4-10.8) *H Medications Medications Dose Ordered Sig/Dena Route Start Time Stop Time Status Last Admin Dose Admin Ketorolac Tromethamine 15 mg ONCE ONCE IV 08/26/25 19:45 08/26/25 19:46 DC 08/26/25 20:21 Ondansetron HCl 4 mg ONCE ONCE IV 08/26/25 19:45 08/26/25 19:46 DC 08/26/25 20:20 Sodium Chloride 1,000 ml @ 1,000 mls/hr Q1H ONCE IV 08/26/25 19:45 08/26/25 20:44 DC 08/26/25 20:21 Departure 1 Departure Time of Disposition: 22:12 Impression: Primary Impression: Abdominal pain Additional Impression: Leukocytosis Disposition: ADMITTED INPATIENT Condition: Stable Comments MDM: Antibiotics initiated in the ED Patient admitted to hospitalist service for further treatment, evaluation and monitoring. Extensive evaluation was performed in attempt to identify or rule out: (See differential diagnosis section) The following tests were ordered, and results were reviewed by me and discussed with patient: (See diagnostic results section) Decision regarding hospitalization or escalation of hospital level of care: Risk and benefits of admission for further treatment of patient's condition was considered. Due to patient's current clinical condition, high risk of decline and poor outcome if discharged and need for further inpatient management and monitoring, patient will be admitted to the hospital. Critical Care Note Critical Care Time?: No Stability Stability form required: No Heart Score Heart Score: Heart Score Response (Comments) Value History N/A 0 EKG N/A 0 Age N/A 0 Risk Factors N/A 0 Troponin N/A 0 Total 0 I personally scribed for POLLY HADDAD MD ([email or web address]) on 08/26/25 at 19:19. Electronically submitted by Juan Antonio Benavidez ([email or web address]). I personally scribed for POLLY HADDAD MD ([email or web address]) on 08/26/25 at 21:58. Electronically submitted by Juan Antonio Benavidez ([facility] POLLY HADDAD MD Aug 26, 2025 19:19
--- NOTE | 2025-08-27 11:29 | DVHHPRES ---
History of Present Illness Resident Creating Document: RUPESH NICOLE RESIDENT History of Present Illness 45-year-old male with past medical history of hypertension not taking medication, surgical history of cholecystectomy and colectomy( 4 cm) has come today to the emergency due to complaints of sore throat for 3 days, diarrhea and vomiting since today morning and left sided flank pain for the past few days. Patient reports that it has been 3 days since his sore throat has rendered him unable to keep any food or drink down, and due to cravings he is still continuing to try smoking marijuana which he is addicted to. He reports of pain 10/10 in intensity, localized through the throat, which hoarseness of his voice. Since today morning patient also had 20 episodes of nonbloody, watery emesis, accompanied by 2-3 episodes of watery diarrhea. These symptoms have been associated with subjective fever, chills, nausea and recent sick contact was his 5-year-old son was who had earache and fever. he went to the urgent clinic today ([facility]) for these symptoms and was told he had a streptococcal throat infection and was advised to visit the emergency room. Patient denies any chest pain, abdominal pain, shortness of breath, recent travel history, any food that could have triggered symptoms. He also endorses left flank pain with believes it could be musculoskeletal and is mild. on admission he has a septic presentation with pulse 126, WBC 30.8. Temperature is 98.7, RR 16, pulse oximetry 97 room air. Abdomen and pelvis CT was done for his flank pain with shows diffuse hepatic steatosis and no significant finding. Urinalysis is negative. We admitted the patient for further assessment and treatment. Past medical history: Hypertension not taking any medication due to lack of insurance Past surgical history: Cholecystectomy, colectomy Social history: Patient has been smoking half pack per day for 33 years, smokes marijuana daily- excessively, drinks alcohol 3 bottles of beer on the weekends Family history: Reviewed and noncontributory to the management of this case PCP: Patient does not have 1 Allergies: Bactrim ( body rash) code status: Full code Review of Systems Constitutional: Yes: Chills; No: Fever, Sweats, Weakness, Malaise, Other Eyes: No: Pain, Vision change, Conjunctivae inflammation, Eyelid inflammation, Other, Redness ENT: Throat pain, Throat swelling; No: Ear pain, Ear discharge, Nose pain, Nose discharge, Nose congestion, Mouth pain, Mouth swelling, Other Respiratory: No: Cough, Dry, Shortness of breath, SOB with excertion, Wheezing, Hemoptysis, Pleuritic Pain, Sputum, Wheezing, Other Cardiovascular: No: Chest Pain, Palpitations, Orthopnea, Paroxysmal Noc. Dyspnea, Edema, Lt Headedness, Other Gastrointestinal: Nausea, Vomiting; No: Abdominal Pain, Diarrhea, Constipation, Melena, Hematochezia, Other Genitourinary: No Dysuria, No Frequency, No Incontinence, No Hematuria, No Retention, No Other Musculoskeletal: back pain; No: other, neck pain, shoulder pain, arm pain, hand pain, leg pain, foot pain Skin: No: Rash, Lesions, Jaundice, Bruising, Other Neurological: No: Weakness, Numbness, Incoordination, Change in speech, Confusion, Seizures, Other Allergies: Coded Allergies: Sulfamethoxazole w/Trimethoprim (Verified Allergy, Unknown, 12/30/19) Exam Vital Signs Vital Signs Date Time Temp Pulse Resp B/P (MAP) Pulse Ox O2 Delivery O2 Flow Rate FiO2 08/26/25 18:10 98.7 126 16 152/104 97 98.7 Exam General Appearance: Alert, Oriented X3, Cooperative, Not in acute distress HEENT: Atraumatic, Mucous membranes moist/pink, hoarseness of voice, erythematous posterior throat Respiratory: Clear to auscultation, Normal air movement, No added sounds Cardiovascular: Regular rate, Normal S1, Normal S2, No murmurs Abdominal: Active bowel sounds, Soft, no distention, mild tenderness on palpation of left flank, no costovertebral tenderness present Extremities: No edema, Normal pulses, No tenderness/swelling Skin: No Significant rash, except past surgical scars Neuro: Normal speech, sensorimotor deficits none Psych/Mental Status: Mental status NL, Mood NL Labs/Xrays Labs Test 08/26/25 20:30 08/26/25 19:43 Range/Units Urine Color Yellow Yellow Urine Clarity Clear Clear Urine pH 6.5 5.0-9.0 Urine Specific [place] 1.046 H 1.001-1.035 Urine Protein 2+ H Negative Urine Ketones 1+ H Negative Urine Blood Trace H Negative /uL Urine Nitrite Negative Negative Urine Bilirubin Negative Negative Urine Urobilinogen 6 Negative mg/dL Urine Leukocyte Esterase Negative Negative /uL Urine RBC 31 0 - 3 /hpf Urine Microscopic WBC 1 0-3 /HPF Urine Squamous Epithelial Cells None seen <5 /hpf Urine Bacteria None seen None Seen /hpf Urine Mucus Few None Seen Urine Yeast (Budding) Occasional None Seen /hpf Urine Glucose Normal Normal mg/dL White Blood Count 30.8 *H 4.4-10.8 10^3/uL Red Blood Count 5.77 4.5-5.90 10^6/uL Hemoglobin 16.5 13.5-17.5 g/dL Hematocrit 48.9 41.0-53.0 % Mean Corpuscular Volume 84.7 80.0-100.0 fL Mean Corpuscular Hemoglobin 28.6 28.0-32.0 pg Mean Corpuscular Hemoglobin Concent 33.7 32.0-36.0 g/dL Red Cell Distribution Width 14.2 11.8-14.3 % Platelet Count 200 140-450 10^3/uL Mean Platelet Volume 8.8 6.9-10.8 fL Neutrophils (%) (Auto) 37.0-80.0 % Lymphocytes (%) (Auto) 10.0-50.0 % Monocytes (%) (Auto) 0.0-12.0 % Basophils (%) (Auto) 0.0-2.0 % Neutrophils # (Auto) 1.6-8.6 10 ^3/uL Lymphocytes # (Auto) 0.4-5.4 10 ^3/uL Monocytes # (Auto) 0-1.3 10 ^3/uL Differential Total Cells Counted 100.0 100 Neutrophils % (Manual) 83 H 37.0-80.0 Band Neutrophils % (Manual) 10 Lymphocytes % (Manual) 3 L 10.0-50.0 Monocytes % (Manual) 4 0-12 Eosinophils % (Manual) 0 0-7 Basophils % (Manual) 0 0.0-2.0 Metamyelocytes % (manual) 0 Myelocytes % (Manual) 0 Promyelocytes % (Manual) 0 Blast Cells % (Manual) 0 Reactive Lymphocytes 0 Platelet Estimate Adequate Anisocytosis (manual) Slight Sodium Level 138 136-145 mmol/L Potassium Level 4.9 3.5-5.1 mmol/L Chloride Level 101 98-107 mmol/L Carbon Dioxide Level 28 20-31 mmol/L Anion Gap 9 5-15 Blood Urea Nitrogen 14 9-23 mg/dL Creatinine 1.12 0.700-1.30 mg/dL Glomerular Filtration Rate Calc 83 >90 mL/min BUN/Creatinine Ratio 12.5 10.0-20.0 Serum Glucose 128 H 74-106 mg/dL Calcium Level 9.8 8.7-10.4 mg/dL SEPSIS Sepsis Screen Date sepsis recognized/suspect: Aug 26, 2025 Time Sepsis recognized/suspect: 1811 Recent Procedure: No On Antibiotic Therapy: No Respiratory Rate >20: No Heart Rate >90: Yes Temp<36 C (96.8 F) or >38.3 C: No SBP <90 or MAP <65 mmHG: No New Acute Mental Status Change: No Is the patient on CPAP, BIPAP,: No Physician Orders Ct Ab Pel Wo Con-No Oral Or Iv (08/26/25 19:35) Vital Signs Date Time Temp Pulse Resp B/P (MAP) Pulse Ox O2 Delivery O2 Flow Rate FiO2 08/26/25 18:10 98.7 126 16 152/104 97 98.7 Laboratory Tests Test 08/26/25 19:43 White Blood Count 30.8 10^3/uL (4.4-10.8) *H Medications Medications Dose Ordered Sig/Dnea Route Start Time Stop Time Status Last Admin Dose Admin Ketorolac Tromethamine 15 mg ONCE ONCE IV 08/26/25 19:45 08/26/25 19:46 DC 08/26/25 20:21 15 MG Ondansetron HCl 4 mg ONCE ONCE IV 08/26/25 19:45 08/26/25 19:46 DC 08/26/25 20:20 4 MG Sodium Chloride 1,000 ml @ 1,000 mls/hr Q1H ONCE IV 08/26/25 19:45 08/26/25 20:44 DC 08/26/25 20:21 1,000 MLS/HR Assessment/Plan Assessment/Plan #Sepsis due to streptococcal throat infection #Acute gastroenteritis #Possible cyclic vomiting syndrome due to marijuana abuse #Diffuse hepatic steatosis -streptococcal test positive -CT abdomen and pelvis showed: The imaged lower thorax demonstrates minimal right lower lobe atelectatic changes; diffuse hepatic steatosis -Dilaudid .25 g q.4 PRN -throat lozenges due to PRN for sore throat -COVID, flu test negative -CXR no acute cardiopulmonary disease -UDS -NPO except ice chips -Lactic acid 1.6 -Blood culture -Sputum culture -MRSA screen -IV ceftriaxone 1 g daily -IV metronidazole 500 mg Q 8 daily -IV fluids NS 0.9%- to boluses of 1 L given, maintain its fluid 125 mL/hour -Stool WBC -Stool culture -C diff #Polysubstance abuse ( nicotine, marijuana) -patient was counseled excessively regarding the need of cessation of smoking nicotine and marijuana and the side effects and harm it causes to his health over 8 minutes #Obesity, BMI 33.7 kg/M2 -patient was counseled extensively regarding the need of exercise, dietary modification and lifestyle changes for weight loss over 8 minutes DVT prophylaxis: Lovenox 40 mg subcutaneous daily Diet:NPO except ice chips Goals of care discussed with the patient for more than 27 minutes: Full code status Case discussed with patient and nurse. Plan discussed with: Patient Date of Service: Aug 27, 2025 Billing Provider: ANIKET CHANDLER MD Common Visit Codes: 89127-XTLRETY INP/OBS CARE (HIGH) Secondary Visit Codes: 28926-FZZDRXOY CARE PLAN 30 MINUTES RUPESH NICOLE RESIDENT Aug 26, 2025 23:46
--- NOTE | 2025-08-27 11:36 | DVH ---
CLINICAL HISTORY: HEAD AND NECK ABSCESS TECHNIQUE: CT Head and neck was performed with IV contrast. This exam was performed according to our departmental dose optimization program. Up-to-date CT equipment and radiation dose reduction techniqu es are utilized as appropriate. CTDI 62 DLP 1927 COMPARISON: CERVICAL WITHOUT CONTRAST on DOS: 07/18/21, HEAD WITHOUT CONTRAST on DOS: 07/18/21 FINDINGS: There is no evidence for acute intracranial hemorrhage, acute ischemic changes, mass, mass effect, or extra-axial fluid collection. There is no hydrocephalus or midline shift. There is no effacement of the cerebral sulci and basal subarachnoid cisterns. The davis-white matter differentiation is well herminio ntained. The parotid, submandibular, and thyroid glands are unremarkable. The airway is patent. The epiglottis is normal. There is hypertrophy of the bilateral palatine tonsil s. No discrete fluid collection is seen. The lingual tonsils are unremarkable. There are bilateral level 2 lymph node measuring up to 2.2 cm on the right. No acute osseous abnormality is present. The paranasal sinuses demonstrate no significant mucosal opacification. The imaged upper lungs are clear. IMPRESSION: Bilateral acute palatine tonsillitis. No evidence for abscess. Bilateral level 2 lymphadenopathy, likely reactive. No acute intracranial abnormality seen.
[2025-08-27] MEDS: VANCOMYCIN 1GM/250ML KIT 250 ML IV ONE (12:14)
[2025-08-27] MEDS: CHLORHEXIDINE 0.12% ORAL rinse 473ML MT SCH (12:43)
[2025-08-27] MEDS: LACTATED RINGER'S 1,000 ML IV SCH (13:36)
--- NOTE | 2025-08-27 17:04 | DVHPNRES ---
Progress Note Date Seen: Aug 27, 2025 Resident Creating Document: YAKELIN LIRIANO RESIDENT Has the PT tested + for MRSA If YES, has PT been informed?: No Medical Necessity Reason Pt with a Central, PICC or Fol: No Subjective Review of Systems 45-year-old male with past medical history of hypertension, not on any medication presented to the hospital with complaints of dizziness and body aches since 1 day. Patient also complains of associated vomiting and diarrhea. He visited [facility] in [place] where he was diagnosed with strep throat infection. He was sent home on amoxicillin. After going home his symptoms worsened with fever vomiting and diarrhea increasing in severity. Hence patient came to the ED. PMHx: Hypertension not on any medication PSHx: Cholecystectomy, polypectomy Family history: No relevant Family history Social history: 30 pack year smoking history, occasional alcohol use, daily marijuana use Home medication: No home medications Allergic history: Sulfamethoxazole, trimethoprim General: Complains of body ache, HEENT:No, visiual changes, hearing loss, tinnitus, nasal congestion and discharge, and sore throat. Complaints of headache Cardiovascular: Denies chest pain, palpitations, dyspnea on exertion, orthopnea, or claudication. Respiratory: No cough, and wheezing. Gastrointestinal: Denies nausea,, dysphagia, odynophagia, heartburn, , flatulence, bloating, diarrhea, constipation, change in stool, or blood in stool. vomiting and abdominal pain Genitourinary: No dysuria, hematuria, discharge, frequency, urgency, nocturia, incontinence, and urinary retention. Endocrine: No heat or cold intolerance, polydipsia, polyuria, and polyphagia. Neurological: No dizziness, extremity weakness and numbness, tremors, gait disturbance, seizures, and memory impairment. Psychiatric: Denies depression, anxiety,or insomnia. Musculoskeletal: Denies neck pain, stiffness and swelling, back pain, muscle weakness, joint pain, stiffness, swelling, or limited range of motion. Skin: No rashes, itching, skin lesion, changes in hair, nail, skin texture and breast. Hematologic/Lymphatic: Denies easy bruising, bleeding tendencies, or lymph node enlargement. Objective vital signs Vital Sign Date Time Temp Pulse Resp B/P (MAP) Pulse Ox O2 Delivery O2 Flow Rate FiO2 08/27/25 16:55 98.3 71 20 150/93 (112) 96 98.3 08/27/25 05:41 Room Air* 0 21 medications Current Medications Medications Dose Ordered Sig/Dena Route Start Time Stop Time Status Last Admin Dose Admin Ondansetron HCl 4 mg Q4HP PRN IV 08/27/25 00:00 Enoxaparin Sodium 40 mg DAILY SC 08/27/25 00:00 08/27/25 10:45 40 MG Hydromorphone HCl 0.25 mg Q4HPRN PRN IV 08/27/25 00:15 08/27/25 10:46 0.25 MG Metronidazole 100 ml @ 100 mls/hr Q8HR IV 08/27/25 06:00 08/27/25 15:38 100 MLS/HR Ceftriaxone Sodium 50 ml @ 100 mls/hr DAILY@2200 IV 08/27/25 22:00 Throat Lozenges 1 wilver Q2HP PRN MT 08/27/25 00:15 Lactated Ringer's 1,000 ml @ 125 mls/hr Q8H IV 08/27/25 10:00 08/27/25 13:36 125 MLS/HR Vancomycin HCl 0 ml @ 0 mls/hr PER PHARMACY IV 08/27/25 10:00 Chlorhexidine Gluconate 15 ml Q12HR MT 08/27/25 10:15 08/27/25 12:43 15 ML Vancomycin HCl 250 ml @ 200 mls/hr Q12H IV 08/28/25 00:00 Examination General Appearance: Alert, Oriented X3, Cooperative, No acute distress HEENT: Erythema and swelling of the tonsils and pharynx Respiratory: Clear to auscultation, Normal air movement Cardiovascular: Regular rate, Normal S1, Normal S2, No murmurs, no chest wall tenderness Abdominal: Normal bowel sounds, Soft, No tenderness, No hepatospenomegaly, No masses Extremities: No clubbing, No cyanosis, No edema, Normal pulses, No tenderness/swelling Skin: No rashes, No breakdown, No significant lesion Neuro: Normal gait, Normal speech, Strength at 5/5 X4 ext, Normal tone, Sensation intact, Cranial nerves 3-12 NL, Reflexes 2+ Psych/Mental Status: Mental status NL, Mood NL laboratory and microbiology Laboratory Tests 08/27/25 03:40 Test 08/27/25 03:40 Range/Units Serum Glucose 133 H 74-106 mg/dL Problem List/Assessment/Plan Problem List/Assessment/Plan #Sepsis due to streptococcal throat infection #Acute gastroenteritis #Possible cyclic vomiting syndrome due to marijuana abuse #Diffuse hepatic steatosis -streptococcal test positive -CT abdomen and pelvis showed: The imaged lower thorax demonstrates minimal right lower lobe atelectatic changes; diffuse hepatic steatosis -Dilaudid .25 g q.4 PRN -throat lozenges due to PRN for sore throat -COVID, flu test negative -CXR no acute cardiopulmonary disease -UDS -NPO except ice chips -Lactic acid 1.6 -Blood culture -Sputum culture -MRSA screen -IV ceftriaxone 1 g daily -IV metronidazole 500 mg Q 8 daily -IV fluids NS 0.9%- to boluses of 1 L given, maintain its fluid 125 mL/hour -Stool WBC -Stool culture -C diff #Polysubstance abuse ( nicotine, marijuana) -patient was counseled excessively regarding the need of cessation of smoking nicotine and marijuana and the side effects and harm it causes to his health over 8 minutes #Obesity, BMI 33.7 kg/M2 -patient was counseled extensively regarding the need of exercise, dietary modification and lifestyle changes for weight loss over 8 minutes DVT prophylaxis: Lovenox 40 mg subcutaneous daily Diet:NPO except ice chips Goals of care discussed with the patient for more than 23 minutes: Full code status Case discussed with Plan discussed with: Patient My Orders My Orders Orders - YAKELIN LIRIANO Procedure Category Date Status Time Complete Blood Count LAB 08/28/25 Verified 04:00 Clear Liq Diet DIET 08/27/25 Transmitted Lunch Dietary Evaluation Review Comments: 1) advance diet as medically feasible 2) Monitor NPO status/PO intake, lab values, weight trend, and I/O Expected Outcomes/Goals: GI symptoms to improve Intake to meet >75% estimated needs Fu 2-3 days Date of Service: Aug 27, 2025 Billing Provider: KARRIE POE MD Common Visit Codes: 99531-SLEAROCMYC INP/OBS CARE(HIGH) YAKELIN LIRIANO Aug 27, 2025 17:04 KARRIE POE MD Aug 30, 2025 20:55
[2025-08-28] VITALS (7 sets, daily range): BP systolic 133–179; BP diastolic 89–109; PULSE 50–77; RESP 16–20; TEMP 36.6; O2SAT 92–97
[2025-08-28] MEDS: VANCOMYCIN 1.25GM/250ML 250 ML IV SCH (00:12)
[2025-08-28 05:07] LABS: Hematocrit 41.2 % (41.0-53.0); Hemoglobin 13.9 g/dL (13.5-17.5); Mean Corpuscular Hemoglobin 28.5 pg (28.0-32.0); Mean Corpuscular Volume 84.7 fL (80.0-100.0); Nucleated Red Blood Cells % 0.0 %
[2025-08-28] MEDS ORDERED: ACET-1304 PO (08:59)
[2025-08-28] MEDS ORDERED: THROLOZ41 MT (08:59)
[2025-08-28] MEDS ORDERED: AUG875T PO (08:59)
--- NOTE | 2025-08-28 09:05 | DVHDSRES ---
Discharge Summary Date of Admission Resident Creating Document: KUMAR GARCES RESIDENT Aug 26, 2025 at 23:53 Date of Discharge: Aug 28, 2025 Admitting Diagnosis Sepsis with Strep Throat Labs/Diagnostic Data: Laboratory Results Test 08/28/25 04:15 08/27/25 19:30 08/27/25 09:21 08/27/25 03:40 White Blood Count 12.7 10^3/uL (4.4-10.8) Red Blood Count 4.87 10^6/uL (4.5-5.90) Hemoglobin 13.9 g/dL (13.5-17.5) Hematocrit 41.2 % (41.0-53.0) Mean Corpuscular Volume 84.7 fL (80.0-100.0) Mean Corpuscular Hemoglobin 28.5 pg (28.0-32.0) Mean Corpuscular Hemoglobin Concent 33.6 g/dL (32.0-36.0) Red Cell Distribution Width 13.9 % (11.8-14.3) Platelet Count 194 10^3/uL (140-450) Mean Platelet Volume 9.0 fL (6.9-10.8) Neutrophils (%) (Auto) 76.3 % (37.0-80.0) Lymphocytes (%) (Auto) 14.1 % (10.0-50.0) Monocytes (%) (Auto) 8.7 % (0.0-12.0) Eosinophils (%) (Auto) 0.6 % (0.0-7.0) Basophils (%) (Auto) 0.3 % (0.0-2.0) Neutrophils # (Auto) 9.7 10 ^3/uL (1.6-8.6) Lymphocytes # (Auto) 1.8 10 ^3/uL (0.4-5.4) Monocytes # (Auto) 1.1 10 ^3/uL (0-1.3) Eosinophils # (Auto) 0.1 10 ^3/uL (0-0.8) Basophils # (Auto) 0 10 ^3/uL (0-0.2) Nucleated Red Blood Cells 0.0 % Stool for White Cells None seen Lactic Acid Level 0.8 mmol/L (0.4-2.0) Sodium Level 137 mmol/L (136-145) Potassium Level 4.0 mmol/L (3.5-5.1) Chloride Level 103 mmol/L (98-107) Carbon Dioxide Level 25 mmol/L (20-31) Anion Gap 9 (5-15) Blood Urea Nitrogen 18 mg/dL (9-23) Creatinine 0.87 mg/dL (0.700-1.30) Glomerular Filtration Rate Calc 109 mL/min (>90) BUN/Creatinine Ratio 20.7 (10.0-20.0) Serum Glucose 133 mg/dL (74-106) Calcium Level 9.1 mg/dL (8.7-10.4) Total Bilirubin 0.8 mg/dL (0.2-1.0) Aspartate Amino Transferase (AST) 15 U/L (13-40) Alanine Aminotransferase (ALT) 21 U/L (7-40) Alkaline Phosphatase 88 U/L (46-116) Total Protein 7.2 g/dL (5.7-8.2) Albumin 4.5 g/dL (3.2-4.8) Test 08/27/25 02:00 08/27/25 00:30 08/26/25 20:30 08/26/25 19:43 Influenza Type A Antigen Negative (Negative) Influenza Type B Antigen Negative (Negative) SARS-CoV-2 Antigen (Rapid) Negative (NEGATIVE) Group A Streptococcus Rapid Positive Magnesium Level 2.2 mg/dL (1.6-2.6) Direct Bilirubin 0.2 mg/dL (<0.3) Urine Color Yellow (Yellow) Urine Clarity Clear (Clear) Urine pH 6.5 (5.0-9.0) Urine Specific [place] 1.046 (1.001-1.035) Urine Protein 2+ (Negative) Urine Ketones 1+ (Negative) Urine Blood Trace /uL (Negative) Urine Nitrite Negative (Negative) Urine Bilirubin Negative (Negative) Urine Urobilinogen 6 mg/dL (Negative) Urine Leukocyte Esterase Negative /uL (Negative) Urine RBC 31 /hpf (0 - 3) Urine Microscopic WBC 1 /HPF (0-3) Urine Squamous Epithelial Cells None seen /hpf (<5) Urine Bacteria None seen /hpf (None Seen) Urine Mucus Few (None Seen) Urine Yeast (Budding) Occasional /hpf (None Urine Glucose Normal mg/dL (Normal) Differential Total Cells Counted 100.0 (100) Neutrophils % (Manual) 83 (37.0-80.0) Band Neutrophils % (Manual) 10 Lymphocytes % (Manual) 3 (10.0-50.0) Monocytes % (Manual) 4 (0-12) Eosinophils % (Manual) 0 (0-7) Basophils % (Manual) 0 (0.0-2.0) Metamyelocytes % (manual) 0 Myelocytes % (Manual) 0 Promyelocytes % (Manual) 0 Blast Cells % (Manual) 0 Reactive Lymphocytes 0 Platelet Estimate Adequate Anisocytosis (manual) Slight Other Laboratory Tests 08/28/25 04:15 08/27/25 03:40 Brief Hx & Hospital Course: Hospital Course: Mr. Queen, a 45-year-old male with a history of untreated hypertension presented with dizziness, body aches, vomiting, and diarrhea for one day. He was previously seen at the [facility] in [place], where he was diagnosed with strep throat and prescribed amoxicillin. After returning home, his symptoms worsened, including increased fever, vomiting, and diarrhea, prompting his visit to the emergency department. His surgical history includes cholecystectomy and polypectomy. He has a 30 pack-year smoking history, uses alcohol occasionally, and reports daily marijuana use. He denies taking any home medications except amoxicillin 500 mg bid daily and has a known allergy to sulfamethoxazole and trimethoprim. He also complains of headache but denies visual changes, hearing loss, tinnitus, nasal congestion, or sore throat. Was Physical Examination at discharge: General Appearance: Alert, Oriented X3, Cooperative, No acute distress HEENT: Erythema and swelling of the tonsils and pharynx with b/l tonsillar crypts with pus visible. Poor oral hygiene. Respiratory: Clear to auscultation, Normal air movement Cardiovascular: Regular rate, Normal S1, Normal S2, No murmurs, no chest wall tenderness Abdominal: Normal bowel sounds, Soft, No tenderness, No hepatosplenomegaly, No masses Extremities: No clubbing, No cyanosis, No edema, Normal pulses, No tenderness/swelling Skin: No rashes, No breakdown, No significant lesion Neuro: Normal gait, Normal speech, Strength at 5/5 X4 ext, Normal tone, Sensation intact, Cranial nerves 3-12 NL, Reflexes 2+ Psych/Mental Status: Mental status NL, Mood NL Medical Conditions treated in Hospital: #Streptococcal pharyngitis, first episode, as per patient: failed on amoxicillin. Discharged with 10 days of Augmentin. Mechanical soft diet till sore throat improves, lozenges and Tylenol tid as needed. #Ruled out head neck abscess: as further complication with CT contrast. #Poor oral hygiene: chlorhexidine, q6 months of dental visit outpatient cardenas. Abx treatment includes Strep with oral anaerobes. #Acute Sepsis, POA: likely due to streptococcal throat infection, lactate -ve, blood culture -ve, c diff -ve #Acute gastroenteritis, POA: antibiotic associated diarrhea in differential. #Possible cyclic vomiting syndrome due to marijuana abuse #Diffuse hepatic steatosis, lifestyle modification. #Polysubstance abuse (nicotine, marijuana): >11 minutes of cessation counseling done. #Obesity Grade I, BMI 33.7 kg/M2: dietary modification and lifestyle changes for weight loss #Goals of care Full code status during the hospital. #Surgical h/o Cholecystectomy. #Headache, likely due to the infection, no neurovascular deficit noted, hydration and oral Tylenol as needed. #Known allergy of tmp smx. #Newly diagnosed of essential hypertension: cardiac diet, 2gram salt restriction daily, 150 min/week exercise and 5mg daily amlodipine with target bp of 140/90 or below. Case discussed with . The patient is discharged home with Discharge clinic follow up, PCP visit to establish. Agreeable to plan. Discharge counseling, clinical work and planning needed 37 minutes. Operations or Procedures [place] [id number] Ph: [phone] DIAGNOSTIC IMAGING Diagnostic Imaging Report : [id number] Signed PATIENT: MARIE QUEEN ACCT: [id number] UNIT: [id number] : 1980 LOC: [facility] ROOM / BED: 0231 / A AGE / SEX: 45 / M ADM STATUS: ADM IN SERVICE 1047 ORDERING PHYSICIAN: KUMAR GARCES RESIDENT PROCEDURE(s): CTHNC - CT HEAD NECK WITH CONT REASON: HEAD AND NECK ABSCESS ORDER NUMBER(s): [id number], ACCESSION NUMBER(s): [id number] CLINICAL HISTORY: HEAD AND NECK ABSCESS TECHNIQUE: CT Head and neck was performed with IV contrast. This exam was performed according to our departmental dose optimization program. Up-to-date CT equipment and radiation dose reduction techniques are utilized as appropriate. CTDI 62 DLP 1927 COMPARISON: CERVICAL WITHOUT CONTRAST on DOS: 07/18/21, HEAD WITHOUT CONTRAST on DOS: 07/18/21 FINDINGS: There is no evidence for acute intracranial hemorrhage, acute ischemic changes, mass, mass effect, or extra-axial fluid collection. There is no hydrocephalus or midline shift. There is no effacement of the cerebral sulci and basal subarachnoid cisterns. The davis-white matter differentiation is well maintained. The parotid, submandibular, and thyroid glands are unremarkable. The airway is patent. The epiglottis is normal. There is hypertrophy of the bilateral palatine tonsils. No discrete fluid collection is seen. The lingual tonsils are unremarkable. There are bilateral level 2 lymph node measuring up to 2.2 cm on the right. No acute osseous abnormality is present. The paranasal sinuses demonstrate no significant mucosal opacification. The imaged upper lungs are clear. IMPRESSION: Bilateral acute palatine tonsillitis. No evidence for abscess. Bilateral level 2 lymphadenopathy, likely reactive. No acute intracranial abnormality seen. ATED BY: NIMISHA PHELPS MD DICTATED DATE/TIME: 08/27/251132 SIGNED BY: NIMISHA PHELPS MD SIGNED DATE/TIME: 08/27/251132 CC: [place] [id number] Ph: [phone] DIAGNOSTIC IMAGING Diagnostic Imaging Report : [id number] Signed PATIENT: MARIE QUEEN ACCT: [id number] UNIT: [id number] : 1980 LOC: OVERFLOW ROOM / BED: [facility][note 3]ER / A AGE / SEX: 45 / M ADM STATUS: ADM IN SERVICE ORDERING PHYSICIAN: RUPESH NICOLE RESIDENT PROCEDURE(s): CXR1 - CHEST XRAY 1 VIEW REASON: sob ORDER NUMBER(s): [id number], ACCESSION NUMBER(s): [id number] CHEST RADIOGRAPH Indication: sob Technique: 1 view Comparison: None FINDINGS: Lines and Tubes: None. Lungs/Pleura: No focal consolidation, pleural effusion or pneumothorax. Cardiomediastinum: Unremarkable. Other: No acute osseous abnormality. IMPRESSION: 1. No acute cardiopulmonary abnormality. ATED BY: YURIDIA MAS MD DICTATED DATE/TIME: 08/27/25105 SIGNED BY: YURIDIA MAS MD SIGNED DATE/TIME: 08/27/25105 CC: [place] [id number] Ph: [phone] DIAGNOSTIC IMAGING Diagnostic Imaging Report : [id number] Signed PATIENT: MARIE QUEEN ACCT: [id number] UNIT: [id number] : 1980 LOC: ER ROOM / BED: / AGE / SEX: 45 / M ADM STATUS: REG ER SERVICE 34 ORDERING PHYSICIAN: POLLY HADDAD MD PROCEDURE(s): ABPL - CT AB PEL WO CON-NO ORAL OR IV REASON: lEFT FLANK PAIN ORDER NUMBER(s): [id number], ACCESSION NUMBER(s): [id number] CLINICAL HISTORY: lEFT FLANK PAIN TECHNIQUE: CT of the abdomen and pelvis was performed without IV contrast. This exam was performed according to our departmental dose optimization program. Up-to-date CT equipment and radiation dose reduction techniques are utilized as appropriate. CTDI 13.6 DLP 782 COMPARISON: US ABDOMEN LIMITED on DOS: 04/09/24, CT CT AB PEL WO CON-NO ORAL OR IV on DOS: 04/09/24, CT ABD PELVIS WO CONTRAST on DOS: 12/30/19 FINDINGS: Abdomen/Pelvis: The spleen, pancreas, adrenal glands, kidneys, bladder, and prostate gland are grossly unremarkable. Hypodense liver lesions are incompletely characterized due to lack of IV contrast. There is diffuse hepatic steatosis. The gallbladder is absent. The abdominal aorta is normal in course and caliber. There are no significant atherosclerotic calcifications. There is no free intraperitoneal air or fluid. There is no enlarged abdominal pelvic lymph node. There is no bowel wall thickening or dilatation. The appendix is normal. Other: The imaged lower thorax demonstrates minimal right lower lobe atelectatic changes. No acute osseous abnormality is evident. Impression: No acute noncontrast CT abnormality in the abdomen or pelvis. Diffuse hepatic steatosis. Cholecystectomy. ATED BY: NIMISHA PHELPS MD DICTATED DATE/TIME: 08/26/252027 SIGNED BY: NIMISHA PHELPS MD SIGNED DATE/TIME: 08/26/252027 CC: Condition at Discharge: Fair Final Diagnosis/Problems List #Streptococcal pharyngitis, first episode, as per patient: failed on amoxicillin. Discharged with 10 days of Augmentin. Mechanical soft diet till sore throat improves, lozenges and Tylenol tid as needed. #Ruled out head neck abscess: as further complication with CT contrast. #Poor oral hygiene: chlorhexidine, q6 months of dental visit outpatient cardenas. Abx treatment includes Strep with oral anaerobes. #Acute Sepsis, POA: likely due to streptococcal throat infection, lactate -ve, blood culture -ve, c diff -ve #Acute gastroenteritis, POA: antibiotic associated diarrhea in differential. #Possible cyclic vomiting syndrome due to marijuana abuse #Diffuse hepatic steatosis, lifestyle modification. #Polysubstance abuse (nicotine, marijuana): >11 minutes of cessation counseling done. #Obesity Grade I, BMI 33.7 kg/M2: dietary modification and lifestyle changes for weight loss #Goals of care Full code status during the hospital. #Surgical h/o Cholecystectomy. #Headache, likely due to the infection, no neurovascular deficit noted, hydration and oral Tylenol as needed. Discharge Disposition: Home Discharge Instruct/Medications Diet: See Comment Activity: No Restrictions, As Tolerated Scheduled Acetaminophen (Tylenol Extra Strength), 500 MG PO BID Amlodipine Besylate (Amlodipine Besylate), 5 MG PO DAILY Amoxicillin & Pot Clavulanate (Augmentin Tablet), 875 MG PO BID Throat Lozenges (Cough Drops Menthol), 1 EA MT BID Discontinued Medications Acetaminophen (Tylenol Extra Strength), 500 MG PO DAILY, (Reported) Amoxicillin & Pot Clavulanate (Augmentin Tablet), 875 MG PO BID Wzhidchzyfjuu-Ezobzoxttlh-Yl (Theraflu Cold & Cough), 1 [facility] PO, (Reported) Discharge Statement: "Patient was advised to return to the ER or call 911 if any headaches, dizziness, shortness of breath, chest pain, abdominal pain, bleeding, fevers, or worsening of medical condition. Patient was counseled about treatment plan, medications, possible side effects, patientverbalized understanding. All questions were answered to the best of my ability. This discharge took greater then 30 minutes in planning, reviewing documentation, counseling the patient, and discussing with other team members." ASSESSMENT ASSESSMENT Assessment Date of Service: Aug 28, 2025 Billing Provider: KARRIE POE MD Common Visit Codes: 64538-RHX/OBS DISCH DAY >30min KUMAR GARCES RESIDENT Aug 28, 2025 09:05 KARRIE POE MD Aug 30, 2025 20:56
[2025-08-28] MEDS: ACETAMINOPHEN 325 MG TAB PO PRN (10:40)
[2025-08-28] MEDS: AMPICILLIN & SULBACTAM SODIUM 3 GM in SODIUM CHL 0.9% 100 ML IV SCH (11:44)
[2025-08-28] MEDS ORDERED: AMLO1TAB23 PO (16:39)
== END 2025-08-28 18:30 | disposition home or self-care (01) | DRG 720 ==
LOC: ER 18:11 → UNDOADMIN 23:46 → OVERFLOW 23:46 → EAST 08-27 05:30
PROVIDERS: ADMIT Internal Medicine Geriatric Medicine; ATTEND Internal Medicine Geriatric Medicine
DX: A41.9 Sepsis, unspecified organism (principal); E66.9 Obesity, unspecified; F12.10 Cannabis abuse, uncomplicated; K52.9 Noninfective gastroenteritis and colitis, unspecified; R11.15 Cyclical vomiting syndrome unrelated to migraine; Z68.33 Body mass index [BMI] 33.0-33.9, adult; Z20.822 Contact with and (suspected) exposure to COVID-19; K76.0 Fatty (change of) liver, not elsewhere classified; J02.0 Streptococcal pharyngitis; I10 Essential (primary) hypertension; F17.210 Nicotine dependence, cigarettes, uncomplicated; Z88.3 Allergy status to other anti-infective agents; Z90.49 Acquired absence of other specified parts of digestive tract; Z71.51 Drug abuse counseling and surveillance of drug abuser; Z71.6 Tobacco abuse counseling
CPT/HCPCS: 36415; 70460; 70491; 71045; 74176; 80048; 80053; 80076; 81001; 83605; 83735; 85007; 85025; 85027; 85048; 87040; 87045; 87081; 87426; 87427; 87493; 87804; 87880; 96365; 96375; G0378; J1885; J2405; J3490